=== PATIENT | female | born 1975 | race Caucasian/White ===

== ENCOUNTER 2016-09-12 16:01 | Emergency (ER) | payer SELFPAY ==
[2016-09-12 15:31] LABS: INFLUENZA A SCREEN NEGATIVE (NEGATIVE); INFLUENZA B SCREEN NEGATIVE (NEGATIVE)
[~2016-09-12 16:01] MED LIST: DENIES HOME MEDS
== END 2016-09-12 16:45 | disposition home or self-care (01) ==
LOC: ER 16:01
PROVIDERS: Nurse Practitioner Acute Care
DX: J06.9 Acute upper respiratory infection, unspecified (principal); R06.2 Wheezing; Z88.2 Allergy status to sulfonamides; Z88.5 Allergy status to narcotic agent; Z91.040 Latex allergy status
CPT/HCPCS: 71020; 87070; 87804; 87880; 96372; 99284; J1885; J2930

== ENCOUNTER 2016-10-23 12:30 | Emergency (ER) | payer SELFPAY | END 2016-10-23 13:14 | disposition home or self-care (01) | LOC: ER 12:30 | DX: J32.9 Chronic sinusitis, unspecified (principal); Z88.2 Allergy status to sulfonamides; Z88.5 Allergy status to narcotic agent; Z91.09 Other allergy status, other than to drugs and biological substances; Z91.040 Latex allergy status | CPT/HCPCS: 96372; 99283; A9270-GY ==